=== PATIENT | male | born 1980 | race African-American/Black ===

== ENCOUNTER 2022-07-04 16:10 | Emergency (ER) | payer SELFPAY ==
[2022-07-04 17:03] LABS: #Eosinphils 0.2 10x3/uL (0.0-0.5); #Monocytes 0.7 10x3/uL (0.0-1.1); #Neutrophils 5.4 10x3/uL (1.5-8.4); %Basophils 0.4 % (0.0-2.0); %Lymphocytes 37.3 % (18.0-47.0); %Monocytes 6.8 % (0.0-10.0); %Neutrophils 53.2 % (40.0-75.0); Hemoglobin 16.5 g/dL (13.5-17.5); Mean Corpuscular HGB CONC 35.4 g/dL (32.0-36.0); Mean Corpuscular Hemoglobin 30.7 pg (27.0-33.0); Mean Corpuscular Volume 86.8 fl (81.2-95.1); Mean Platelet Volume 9.4 fl (7.4-10.4); Platelet Count 333 10x3/uL (150-450); RBC Distribution Width 14.1 % (11.5-14.5); Red Blood Cell (RBC) Count 5.37 10x6/uL (4.32-5.72); White Blood Cell (WBC) Count 10.2 10x3/uL (3.5-10.5)
[2022-07-04 17:04] LABS: ALT (SGPT) 24 U/L (8-55); AST (SGOT) 24 U/L (5-34); Albumin 4.4 g/dL (3.5-5.0); Alkaline Phosphatase 77 U/L (40-110); Anion Gap 13 mmol/L (10-20); BUN (Urea Nitrogen) 14 mg/dL (8.9-20.6); Bilirubin Neg (Negative); Bilirubin, Total 0.4 mg/dL (0.2-1.2); Blood, Urine 10 (Negative); Calc. Creatinine Clearance 0 mL/min (70-130); Calcium 11.3 mg/dL (7.8-10.44); Carbon Dioxide 23 mmol/L (22-29); Chloride 107 mmol/L (98-107); Estimated GFR 93; Globulin 3.4 g/dL (2.4-3.5); Glucose 89 mg/dL (70-105); Glucose, Urine (Dipstick) Normal (Negative); Ketone, Urine Negative (Negative); Leukocyte 500 (Negative); Nitrite Negative (Negative); Potassium 3.9 mmol/L (3.5-5.1); Protein, Total 7.8 g/dL (6.0-8.3); Protein, Urine (Dipstick) Negative (Neg-Trace); Sodium 139 mmol/L (136-145); Specific Gravity, Urine 1.015 (1.005-1.030); Urobilinogen Normal mg/dL (Less than 2); pH, Urine 6.5 (5.0-9.0)
[2022-07-04 17:05] LABS: Clarity Hazy (Clear)
[2022-07-04 17:19] LABS: Bacteria/HPF None Seen HPF (None Seen); RBC/HPF 0-3 HPF (0-3); Squamous Epithelial 0-3 HPF (0-3)
[2022-07-04 17:54] LABS: Syphilis Antibody Nonreactive (Nonreactive); Syphilis Antibody Index 0.04 S/CO (<1.00 Non-Reactive)
[2022-07-04] MEDS ORDERED: cefTRIAXone\\ROCEPHIN 500 MG VIAL ONE (17:55)
[2022-07-04] MEDS ORDERED: Sterile Water 10 ML ONE (17:56)
[2022-07-05 14:41] LABS: Chlam.trachomatis by PCR,Urine Not Detected (NotDetected)
== END 2022-07-04 18:14 | disposition home or self-care (01) ==
LOC: CSHERS 16:10
DX: R82.81 Pyuria (principal); I10 Essential (primary) hypertension
CPT/HCPCS: 80053; 81003; 81015; 85025; 86780; 87491; 87591; 96372; 99284; J0696